=== PATIENT | female | born 1970 | race Caucasian/White ===

== ENCOUNTER → 2016-12-07 | Outpatient (CLI) | payer MEDICARE, BC ==
[~2016-12-07] MED LIST: AMITIZA24 MCG PO; BACTRIM DS TAB1 EACH PO; BUPROPION XL150 MG PO; CATAPRES-DPS0.1 MG PO; CATAPRES-DPS0.1 MG TD; CHANTIX1 MG PO; CYMBALTA DPS60 MG PO; DAILY MULTIPLE1 EAC1 PO; DESYREL DPS100 MG PO; DIHYDROERGOTAMINE IM; DURAGESIC-1212 MCG TD; FLEXERIL-DPS10 MG PO; HABITROL DPS7 MG TD; INVEGA SUS234 MG/1.5 IM; KLONOPIN DPS1 MG PO; LEVOTHYROXINE75 MCG PO; PALIPERIDONE ER6 MG PO; POTASSIUM CHLO10 MEQ PO; PREVACID30 MG PO; RELISTOR12 MG/0.6; REXULTI4 MG PO; ROZEREM8 MG PO; SEROQUEL50 MG PO; TYLENOL DPS325 MG PO; ULTRAM DPS50 MG PO; VALIUM-DPS10 MG PO; VIBRAMYCIN-DPS100 M2 PO; XANAX DPS1 MG PO; ZANAFLEX4 MG PO
== END | disposition home or self-care (01) ==
LOC: RAD.S 10:44
DX: M25.562 Pain in left knee (principal)

== ENCOUNTER 2017-01-06 08:26 | Day surgery (SDC) | payer MEDICARE, BC ==
[~2017-01-06] VITALS: Ht 175.3 cm
--- NOTE | 2017-01-07 08:26 | OR ---
ADMIT: 01/06/2017 RM/LOC: [facility] MR#: [id number] [address] [id number] [address] [place] [address] Operative/Delivery Room Report SEX: F AGE: 46 : 1970 SURGERY DATE: 01/06/2017 SURGEON: Katelynn Rees MD MECHANIC: None. PREOPERATIVE DIAGNOSES: 1. Cervical spondylosis. 2. Cervicalgia. 3. Postlaminectomy syndrome. POSTOPERATIVE DIAGNOSES: 1. Cervical spondylosis. 2. Cervicalgia. 3. Postlaminectomy syndrome. OPERATION: Bilateral C2-C3 cervical medical branch block. INDICATION FOR PROCEDURE: The patient is a pleasant female with history of chronic neck pain and headaches secondary to above mentioned diagnoses, was scheduled for C2, C3, C4, and C5 medial branch blocks, but I did only C2 and C3 medial branch block bilaterally. Because of her instrumentation, I could not do C4 and C5 medial branch block. ANESTHESIA: Local without sedation. ESTIMATED BLOOD LOSS: Zero. COMPLICATIONS: None immediately evident. DESCRIPTION OF PROCEDURE: After the patient was seen in the preoperative area, vital signs were taken prior to the procedure. The risks, benefits, and alternative therapies were discussed at length. Patient consent was obtained and updated. The patient was taken to Fluoroscopy Suite and placed on the fluoroscopy table in the prone position. Pressure points were padded to comfort., monitor applied, and a timeout performed. Next, the patient's jaw was turned to the left side. The patient was monitored throughout the procedure. The patient's cervical area was then prepped and draped in a sterile pattern using ChloraPrep. C-arm fluoroscopy was then brought in to identify the C2-C3 junction and C3 waist on the right ADMIT: 01/06/2017 RM/LOC: [facility] MR#: [id number] [address] [phone] [address] [place] [address] Operative/Delivery Room Report SEX: F AGE: 46 : 1970 side. A 22-gauge curved-tip spinal needle was then advanced and made contact with the C2-C3 junction and C3 waist on the right side. Then we put in Isovue- 300 to confirm the placement. Then I injected 1 ml of solution consisting of 5 mg of dexamethasone with 0.2% bupivacaine. Then I moved on to the left side and repeated the same procedure. On examination 20 minutes after the procedure, the patient had 80% reduction of headaches and range of motion went from 15 to 20 degrees of extension. FOLLOWUP: We will see the patient back for a second set of procedure in one week. Katelynn Rees MD/ schuyler JOB #: [id number] CC: Katelynn Rees, Attending Physician Marcela Quach, Family Physician
== END 2017-01-06 10:36 | disposition home or self-care (01) ==
LOC: SSS 08:26
PROC: 3E0U33Z Introduction of Anti-inflammatory into Joints, Percutaneous Approach (ICD-10-PCS; principal; 2017-01-06)
PROC: 3E0U3BZ Introduction of Anesthetic Agent into Joints, Percutaneous Approach (ICD-10-PCS; principal; 2017-01-06)
PROC: BR14ZZZ Fluoroscopy of Cervical Facet Joint(s) (ICD-10-PCS; principal; 2017-01-06)
DX: G89.29 Other chronic pain (principal); M48.02 Spinal stenosis, cervical region; M47.812 Spondylosis without myelopathy or radiculopathy, cervical region; M54.2 Cervicalgia; M48.06 Spinal stenosis, lumbar region; K59.09 Other constipation; M79.7 Fibromyalgia; G47.00 Insomnia, unspecified; F17.200 Nicotine dependence, unspecified, uncomplicated; Z88.1 Allergy status to other antibiotic agents; Z88.8 Allergy status to other drugs, medicaments and biological substances; Z79.899 Other long term (current) drug therapy; Z90.49 Acquired absence of other specified parts of digestive tract; Z98.890 Other specified postprocedural states

== ENCOUNTER 2017-01-13 21:32 | Emergency (ER) | payer MEDICARE, BC ==
--- NOTE | 2017-02-15 18:11 | ER ---
ADMIT: 01/13/2017 RM/LOC: ER [facility] MR#: [id number] [address] [address] [address] [place] [address] Emergency Room Report SEX: F AGE: 46 : 1970 DATE: 01/13/2017 ADDENDUM: This patient comes to the ER because she is having pain in her right calf. She denies any injury. It started today. She noticed it when she was tanning. She went to Urgent Care. They did x-rays, told her it was negative, sent her to the emergency room. On physical exam, her pain is in the calf area. Her skin is very, very dark from being in a tanning bed. Doppler of her leg was negative for any infection. She was given doxycycline and Keflex and Toradol. She is to follow up with her doctor in the next few days if she is not feeling better. Please see my T-sheet. ALEX Marquez / Yury Guaman MD / schuyler JOB #: [id number] CC: Yury Guaman MD, Attending Physician Marcela Quach MD, Family Physician
== END 2017-01-13 23:30 | disposition home or self-care (01) ==
LOC: ER 21:32
DX: M79.604 Pain in right leg (principal); F32.9 Major depressive disorder, single episode, unspecified; F41.9 Anxiety disorder, unspecified; F17.210 Nicotine dependence, cigarettes, uncomplicated; Z90.49 Acquired absence of other specified parts of digestive tract; Z88.2 Allergy status to sulfonamides

== ENCOUNTER 2017-01-20 09:08 | Day surgery (SDC) | payer MEDICARE, BC ==
[~2017-01-20] VITALS: Ht 175.3 cm; Wt 84.0 kg
--- NOTE | 2017-01-21 08:02 | OR ---
ADMIT: 01/20/2017 RM/LOC: [facility] MR#: [id number] [address] [place] [phone] [address] [place] [address] Operative/Delivery Room Report SEX: F AGE: 46 : 1970 SURGERY DATE: 01/20/2017 SURGEON: Katelynn Rees MD SOFTWARE QUALITY ENGINEER: PREOPERATIVE DIAGNOSES: 1. Cervical spondylosis. 2. Cervicalgia. 3. Chronic daily headaches. POSTOPERATIVE DIAGNOSES: 1. Cervical spondylosis. 2. Cervicalgia. 3. Chronic daily headaches. OPERATION: Bilateral C2-C3 medial branch block. INDICATION FOR PROCEDURE: The patient is a pleasant female with history of chronic daily headache secondary to above-mentioned diagnoses comes here for planned bilateral C2 and C3 medial branch block. ANESTHESIA: Local without sedation. ESTIMATED BLOOD LOSS: Zero. COMPLICATIONS: None immediately evident. DESCRIPTION OF PROCEDURE: After the patient was seen in the preoperative area, vital signs were taken prior to the procedure. The risks, benefits, and alternative therapies were discussed at length. Patient consent was obtained and updated. The patient was taken to Fluoroscopy Suite and placed on the fluoroscopy table in the prone position. Pressure points were padded to comfort., monitor applied, and a timeout performed. Next, the patient's jaw was turned to the left side. The patient was monitored throughout the procedure. The patient's cervical area was then prepped and draped in a sterile pattern using ChloraPrep. C-arm fluoroscopy was then brought in to identify the C2-C3 junction and C3 waist on the right ADMIT: 01/20/2017 RM/LOC: [facility] MR#: [id number] [address] [place] [phone] [address] [place] [address] Operative/Delivery Room Report SEX: F AGE: 46 : 1970 side. A 22-gauge curved-tip spinal needle was then advanced and made contact with the C2-C3 junction and C3 waist on the right side. Then we put in Isovue- 300 to confirm the placement. Then I injected 1 ml of solution consisting of 5 mg of dexamethasone with 0.25% bupivacaine. Then I moved on to the left side and repeated the same procedure. On examination 20 minutes after the procedure, the patient had 80% pain relief and range of motion went from 10 degrees to 15 degrees of extension. FOLLOWUP: We will see the patient back for a second set of procedure in one week. Katelynn Rees MD/ schuyler JOB #: [id number] CC: Katelynn Rees, Attending Physician Marcela Quach, Family Physician
== END 2017-01-20 11:07 | disposition home or self-care (01) ==
LOC: SSS 09:08
PROC: 3E0T3BZ Introduction of Anesthetic Agent into Peripheral Nerves and Plexi, Percutaneous Approach (ICD-10-PCS; principal; 2017-01-20)
PROC: 3E0T33Z Introduction of Anti-inflammatory into Peripheral Nerves and Plexi, Percutaneous Approach (ICD-10-PCS; principal; 2017-01-20)
PROC: BR14YZZ Fluoroscopy of Cervical Facet Joint(s) using Other Contrast (ICD-10-PCS; principal; 2017-01-20)
DX: G89.29 Other chronic pain (principal); M47.812 Spondylosis without myelopathy or radiculopathy, cervical region; Z88.2 Allergy status to sulfonamides; Z88.8 Allergy status to other drugs, medicaments and biological substances; Z79.899 Other long term (current) drug therapy; Z79.52 Long term (current) use of systemic steroids

== ENCOUNTER 2017-01-20 14:50 | Emergency (ER) | payer MEDICARE, BC | END 2017-01-20 15:10 | disposition left against medical advice (07) | LOC: ER 14:50 | DX: Z53.21 Procedure and treatment not carried out due to patient leaving prior to being seen by health care provider (principal) ==

== ENCOUNTER 2017-01-27 19:08 | Emergency (ER) | payer MEDICARE, BC ==
--- NOTE | 2017-01-28 19:58 | ER ---
ADMIT: 01/27/2017 RM/LOC: ER [facility] MR#: [id number] [id number] [place], [place] [address] [address] [place] [address] Emergency Room Report SEX: F AGE: 46 : 1970 DATE: 01/27/2017 HISTORY OF PRESENT ILLNESS: The patient is a 46-year-old female with recent right knee fracture, status post cast, came to the ER because today, she walked, stepped in dark water and the bottom of the cast became wet, damp. The patient uses crutches for mobilization. The patient denies any numbness, tingling, or feeling pressure or pain in the lower extremities. PHYSICAL EXAMINATION: The patient was in no pain or distress, sitting in bed. Head and neck, chest, and abdomen is noncontributory. Right leg, there was short cast. Integrity was preserved. There was mild damping of the bottom of the cast. I did not see any involvement of the viable inside. Neurovascular is grossly intact. PLAN: The patient was advised to use low speed hair clipper power to dry the cast and was mentioned that the cast integrity is preserved and was advised to return to ER if there is any pain or discomfort or any increased itching or skin changes. The patient has close followup with the primary doctor and was discharged to home. Juarez Donaldson MD/ schuyler JOB #: [id number] CC: Juarez Donaldson MD, Attending Physician UNKNOWN, Family Physician
== END 2017-01-27 20:14 | disposition home or self-care (01) ==
LOC: ER 19:08
DX: Z46.89 Encounter for fitting and adjustment of other specified devices (principal); F31.9 Bipolar disorder, unspecified; F41.9 Anxiety disorder, unspecified; F17.210 Nicotine dependence, cigarettes, uncomplicated; Z88.2 Allergy status to sulfonamides; Z88.1 Allergy status to other antibiotic agents; Z90.49 Acquired absence of other specified parts of digestive tract

== ENCOUNTER 2017-02-03 07:03 | Day surgery (SDC) | payer MEDICARE, BC ==
[~2017-02-03] VITALS: Ht 175.3 cm; Wt 84.0 kg
--- NOTE | 2017-02-04 08:05 | OR ---
ADMIT: 02/03/2017 RM/LOC: [facility] MR#: [id number] [address] [place] [phone] [address] [place] [address] Operative/Delivery Room Report SEX: F AGE: 46 : 1970 SURGERY DATE: 02/03/2017 SURGEON: Katelynn Rees MD JUNIOR MANUFACTURING ENGINEER: None. PREPROCEDURE DIAGNOSES: 1. Cervical spondylosis. 2. Cervicalgia. 3. Chronic daily headaches. POSTPROCEDURE DIAGNOSES: 1. Cervical spondylosis. 2. Cervicalgia. 3. Chronic daily headaches. PROCEDURE PERFORMED: Left C2 and C3 radiofrequency thermocoagulation. INDICATIONS FOR PROCEDURE: The patient is a pleasant female with history of chronic neck pain with headaches secondary to above-mentioned diagnoses, comes here for planned left-sided C2 and C3 radiofrequency ablation. ANESTHESIA: Local without sedation. ESTIMATED BLOOD LOSS: Zero. COMPLICATIONS: None immediately evident. DESCRIPTION OF PROCEDURE: After the patient was seen in the preoperative area, vitals signs were taken. Prior to the procedure, the risks, benefits, and alternative therapies were discussed at length. Patient consent was obtained and updated. The patient was taken to the fluoroscopy suite and placed on the fluoroscopy table in the prone position. Pressure points were padded to comfort, monitors applied, and a timeout performed. The patient's jaw was turned to the right side. The patient was monitored throughout the procedure. The patient's cervical areas were then prepped and draped in sterile pattern using ChloraPrep. C-arm fluoroscopy was then brought in to identify C2-C3 junction and C3 waist on the left side. A 20-gauge RFTC ADMIT: 02/03/2017 RM/LOC: [facility] MR#: [id number] [address] [address] [address] [place] [address] Operative/Delivery Room Report SEX: F AGE: 46 : 1970 spinal needle was then advanced and made contact with the C2-C3 junction and C3 waist on the left side. Sensory testing and motor testing were then done. We then proceeded with radiofrequency ablation, which consisted of 80 degrees for 90 seconds. We did an RFTC, of left C3, at 3 levels; 1st level at the C3 waist, 2nd at the C2-C3 joint, and 3rd just above the C2-C3 joint line side. The patient tolerated the procedure well and had no immediate complications. The patient was taken to the PACU where she recovered nicely and was sent home in a stable condition. PLAN: Discharge instructions were given, followup scheduled. The patient was discharged home with a delivery motorcycle driver. Katelynn Rees MD/ schuyler JOB #: [id number] CC: Katelynn Rees, Attending Physician Marcela Quach, Family Physician
== END 2017-02-03 08:53 | disposition home or self-care (01) ==
LOC: SSS 07:03
PROC: 3E0T3TZ Introduction of Destructive Agent into Peripheral Nerves and Plexi, Percutaneous Approach (ICD-10-PCS; principal; 2017-02-03)
PROC: BR14YZZ Fluoroscopy of Cervical Facet Joint(s) using Other Contrast (ICD-10-PCS; principal; 2017-02-03)
DX: G89.29 Other chronic pain (principal); M47.812 Spondylosis without myelopathy or radiculopathy, cervical region; R51 Headache; Z88.2 Allergy status to sulfonamides; Z88.8 Allergy status to other drugs, medicaments and biological substances; Z79.899 Other long term (current) drug therapy

== ENCOUNTER 2017-03-03 06:35 | Day surgery (SDC) | payer MEDICARE, BC ==
[~2017-03-03] VITALS: Ht 175.3 cm; Wt 84.0 kg
--- NOTE | 2017-03-04 08:19 | OR ---
ADMIT: 03/03/2017 RM/LOC: [facility] MR#: [id number] [address] [place] [id number] [address] [place] [address] Operative/Delivery Room Report SEX: F AGE: 46 : 1970 SURGERY DATE: 03/03/2017 SURGEON: Katelynn Rees MD CENTRAL SUPPLY AIDE: None. PREPROCEDURE DIAGNOSES: 1. Cervical spondylosis. 2. Chronic daily headaches. 3. Cervicalgia. POSTPROCEDURE DIAGNOSES: 1. Cervical spondylosis. 2. Chronic daily headaches. 3. Cervicalgia. PROCEDURE PERFORMED: Right C2-C3 radiofrequency thermocoagulation. INDICATIONS FOR PROCEDURE: The patient is a pleasant female with history of chronic headaches comes here for planned right-sided C2 and C3 radiofrequency thermocoagulation. ANESTHESIA: Local without sedation. ESTIMATED BLOOD LOSS: Zero. COMPLICATIONS: None immediately evident. DESCRIPTION OF PROCEDURE: After the patient was seen in the preoperative area, vitals signs were taken. Prior to the procedure, the risks, benefits, and alternative therapies were discussed at length. Patient consent was obtained and updated. The patient was taken to the fluoroscopy suite and placed on the fluoroscopy table in the prone position. Pressure points were padded to comfort, monitors applied, and a timeout performed. The patient's jaw was turned to the left side. The patient was monitored throughout the procedure. The patient's cervical areas were then prepped and draped in sterile pattern using ChloraPrep. C-arm fluoroscopy was then brought in to identify C2-C3 junction and C3 waist. A 20-gauge RFTC spinal needle was ADMIT: 03/03/2017 RM/LOC: [facility] MR#: [id number] [address] [place] [phone] [address] [place] [address] Operative/Delivery Room Report SEX: F AGE: 46 : 1970 then advanced and made contact with the C2-C3 junction and C3 waist on the right side. Sensory testing and motor testing were then done. We then proceeded with radiofrequency ablation, which consisted of 80 degrees for 90 seconds. We did an RFTC, right C3, at 3 levels; 1st level at the C3 waist, 2nd at the C2-C3 joint, and 3rd just above the C2-C3 joint line side. The patient tolerated the procedure well and had no immediate complications. The patient was taken to the PACU where she recovered nicely and was sent home in a stable condition. PLAN: Discharge instructions were given, followup scheduled. The patient was discharged home with a local owner operator truck driver. Katelynn Rees MD/ schuyler JOB #: [id number] CC: Katelynn Rees, Attending Physician Marcela Quach, Family Physician
== END 2017-03-03 08:27 | disposition home or self-care (01) ==
LOC: SSS 06:35
DX: G89.29 Other chronic pain (principal); M47.22 Other spondylosis with radiculopathy, cervical region; M50.10 Cervical disc disorder with radiculopathy, unspecified cervical region; M48.02 Spinal stenosis, cervical region; G43.819 Other migraine, intractable, without status migrainosus; M79.7 Fibromyalgia; M48.06 Spinal stenosis, lumbar region; M51.26 Other intervertebral disc displacement, lumbar region; M47.816 Spondylosis without myelopathy or radiculopathy, lumbar region; Z88.8 Allergy status to other drugs, medicaments and biological substances; Z79.891 Long term (current) use of opiate analgesic; Z79.899 Other long term (current) drug therapy; Z88.2 Allergy status to sulfonamides

== ENCOUNTER 2017-06-06 13:18 | Emergency (ER) | payer MEDICARE, BC | END 2017-06-06 17:59 | disposition home or self-care (01) | DX: E86.0 Dehydration (principal); F31.9 Bipolar disorder, unspecified; E03.9 Hypothyroidism, unspecified; F17.210 Nicotine dependence, cigarettes, uncomplicated; Z98.84 Bariatric surgery status; Z88.2 Allergy status to sulfonamides; Z88.6 Allergy status to analgesic agent; Z88.8 Allergy status to other drugs, medicaments and biological substances ==